=== PATIENT | female | born 1980 | race Two or more races ===

== ENCOUNTER 2018-07-19 19:41 | Emergency (ER) | payer OTHER ==
[~2018-07-19] VITALS: Ht 157.5 cm; Wt 54.4 kg
[~2018-07-19 19:41] MED LIST: DOCU-109 PO; FERR325T14 PO; OXYC1TAB7 PO
[2018-07-19 19:48] VITALS: BP 121/60
[2018-07-19 20:44] LABS: HEMOGLOBIN 10.7 g/dL (12.0-15.5)
[2018-07-19 20:48] LABS: BILIRUBIN,URINE NEGATIVE (NEG); CLARITY,URINE CLOUDY; COLOR,URINE YELLOW; NITRITE,URINE NEGATIVE (NEG); PROTEIN,URINE NEGATIVE (NEG-TRACE); UROBILINOGEN,URINE 0.2 mg/dL (0.2 mg/dL)
[2018-07-19 20:52] LABS: CREATININE 0.6 mg/dL (0.6-1.0); GFR 111.9; POTASSIUM 3.4 mmol/L (3.5-5.1)
[2018-07-19 20:55] LABS: PREG TEST PT QUAL NEGATIVE (NEG)
[2018-07-19 20:57] LABS: BACTERIA,URINE MODERATE /HPF (0-FEW); SQUAMOUS EPITHELIAL CELL,UR OCC /LPF
--- NOTE | 2018-07-19 22:08 | PHYS DOC ---
Past Medical History Past Medical History: No Pertinent History Past Surgical History: Alcohol Use: None Drug Use: None Adult General Chief Complaint Chief Complaint: FLU SYMPTOM HPI HPI Patient is a 37 year old female presents with generalized extremity. Symptoms began 30 minutes prior to ED arrival. No chest pain palpitations, shortness of breath. No abdominal pain, urinary frequency urgency. No leg pain or swelling.[] Review of Systems Review of Systems Review of systems as prescribed. All other review symptoms are negative. All other systems were reviewed and found to be within normal limits, except as documented in this note. Allergies Allergies Allergies Coded Allergies Type Severity Reaction Last Updated Verified No Known Drug Allergies 09/20/14 No Physical Exam Physical Exam Constitutional: Well developed, well nourished, no acute distress, non-toxic appearance. [] HENT: Normocephalic, atraumatic, bilateral external ears normal, oropharynx moist, no oral exudates, nose normal. [] Eyes: PERRLA, EOMI, conjunctiva normal, no discharge. [] Neck: Normal range of motion, no tenderness, supple, no stridor. [] Cardiovascular:Heart rate regular rhythm [] Lungs & Thorax: Bilateral breath sounds clear to auscultation [] Abdomen: Bowel sounds normal, soft. [] Skin: Warm, dry, no erythema, no rash. [] Back: No tenderness. [] Extremities: No tenderness, no cyanosis, no clubbing, ROM intact, no edema. [] Neurologic: Alert and oriented, normal motor function, normal sensory function, no focal deficits noted. [] Psychologic: Affect normal, judgement normal, mood normal. [] Current Patient Data Vital Signs Vital Signs Date Time Temp Pulse Resp B/P (MAP) Pulse Ox O2 Delivery O2 Flow Rate FiO2 07/19/18 19:48 98.3 85 20 121/60 (80) 97 Room Air 98.3 Lab Values Laboratory Tests Test 07/19/18 20:30 07/19/18 20:33 07/19/18 20:36 Urine Color Yellow Urine Clarity Cloudy Urine pH 6.0 Urine Specific [place] 1.015 Urine Protein Negative mg/dL (NEG-TRACE) Urine Glucose (UA) Negative mg/dL (NEG) Urine Ketones (Stick) Negative mg/dL (NEG) Urine Blood Small (NEG) Urine Nitrite Negative (NEG) Urine Bilirubin Negative (NEG) Urine Urobilinogen Dipstick 0.2 mg/dL (0.2 mg/dL) Urine Leukocyte Esterase Moderate (NEG) Urine RBC 1-2 /HPF (0-2) Urine WBC 1-4 /HPF (0-4) Urine Squamous Epithelial Cells Occ /LPF Urine Bacteria Moderate /HPF (0-FEW) Urine Mucus Mod /LPF White Blood Count 7.0 x10^3/uL (4.0-11.0) Hemoglobin 10.7 g/dL (12.0-15.5) L Hematocrit 33.0 % (36.0-47.0) L Platelet Count 180 x10^3/uL (140-400) Sodium Level 135 mmol/L (136-145) L Potassium Level 3.4 mmol/L (3.5-5.1) L Chloride Level 99 mmol/L (98-107) Carbon Dioxide Level 25 mmol/L (21-32) Anion Gap 11 (6-14) Blood Urea Nitrogen 12 mg/dL (7-20) Creatinine 0.6 mg/dL (0.6-1.0) Estimated GFR (Cockcroft-Gault) 111.9 Glucose Level 102 mg/dL (70-99) H Calcium Level 9.0 mg/dL (8.5-10.1) Serum Test, Qualitative Negative (NEG) POC Urine HCG, Qualitative Hcg negative (Negative) Laboratory Tests 07/19/18 20:33 Laboratory Tests 07/19/18 20:33 EKG EKG [] Radiology/Procedures Radiology/Procedures [] Course & Med Decision Making Course & Med Decision Making Pertinent Labs and Imaging studies reviewed. (See chart for details) [ Benign workup, physical exam unremarkable. Recommend supportive care, PCP follow-up. Return precautions reviewed.] Dragon Disclaimer Dragon Disclaimer This electronic medical record was generated, in whole or in part, using a voice recognition dictation system. Departure Departure Impression: Primary Impression: Anhedonia Disposition: 01 HOME, SELF-CARE Condition: GOOD Patient Instructions: Weakness, [id number] Additional Instructions: You were evaluated in the ED for weakness and heaviness. Lab work was performed. ALLIE HOLLAND DO Jul 19, 2018 22:08
== END 2018-07-19 21:30 | disposition home or self-care (01) ==
LOC: ER 19:41
DX: R45.84 Anhedonia (principal)
CPT/HCPCS: 36415; 80048; 81001; 81025; 84703; 85027; 87086; 99283

== ENCOUNTER 2019-04-27 02:50 | Emergency (ER) | payer BC, OTHER ==
[~2019-04-27] VITALS: Ht 157.5 cm; Wt 54.4 kg
[2019-04-27 03:28] LABS: BASO % 1 % (0-3); EOS # 0.1 x10^3/uL (0.0-0.7); EOS % 2 % (0-3); HEMATOCRIT 32.8 % (36.0-47.0); HEMOGLOBIN 10.5 g/dL (12.0-15.5); LYMPH # 1.3 x10^3/uL (1.0-4.8); LYMPH % 31 % (24-48); MEAN CORPUSCULAR HEMOGLOBIN 23 pg (25-35); MEAN CORPUSCULAR HGB CONC 32 g/dL (31-37); MEAN CORPUSCULAR VOLUME 70 fL (79-100); MONO # 0.4 x10^3/uL (0.0-1.1); MONO % 10 % (0-9); NEUT # 2.4 x10^3/uL (1.8-7.7); NEUT % 56 % (31-73); PLATELET COUNT 170 x10^3/uL (140-400); RED BLOOD COUNT 4.67 x10^6/uL (3.50-5.40); RED CELL DISTRIBUTION WIDTH 16.1 % (11.5-14.5); WHITE BLOOD COUNT 4.3 x10^3/uL (4.0-11.0)
[2019-04-27 03:36] LABS: CALCIUM 8.8 mg/dL (8.5-10.1); CREATININE 0.7 mg/dL (0.6-1.0); GFR 93.2
[2019-04-27 04:08] VITALS: BP 101/61
[2019-04-27] MEDS ORDERED: POTA20TA82 PO (04:12)
[2019-04-27] MEDS ORDERED: POTASSIUM CHLORIDE 20 MEQ TABLET.ER. PO ONE (04:15)
--- NOTE | 2019-04-27 04:43 | PHYS DOC ---
Past Medical History Past Medical History: No Pertinent History Past Surgical History: Alcohol Use: None Drug Use: None Adult General Chief Complaint Chief Complaint: WEAKNESS/GENERALIZED HPI HPI Patient is a 38 year old female who presents with generalized weakness most pronounced upper extremities versus noticed this evening. Patient denies pain. Denies recent illness. No new medications or missed medications. No nausea or vomiting. No diarrhea. No fever chills or sweats. No history of diabetes or hypo thyroidism. No other acute symptoms or complaints. Patient had a prior episode several months ago is seen in the emergency department for the same. Translation is assisted by family member. [] Review of Systems Review of Systems Review symptoms as per history of present illness. All other review symptoms are negative[] All other systems were reviewed and found to be within normal limits, except as documented in this note. Current Medications Current Medications Current Medications Medications (Trade) Dose Ordered Sig/Lukas Start Time Stop Time Status Last Admin Dose Admin Potassium Chloride (Klor-Con) 40 meq 1X ONCE 04/27/19 04:15 04/27/19 04:16 DC 04/27/19 04:16 40 MEQ Allergies Allergies Allergies Coded Allergies Type Severity Reaction Last Updated Verified No Known Drug Allergies 09/20/14 No Physical Exam Physical Exam Constitutional: Well developed, well nourished, no acute distress, non-toxic appearance. [] HENT: Normocephalic, atraumatic, bilateral external ears normal, oropharynx moist, no oral exudates, nose normal. [] Eyes: PERRLA, EOMI, conjunctiva normal, no discharge. [] Neck: Normal range of motion, no tenderness, supple, no stridor. [] Cardiovascular:Heart rate regular rhythm, no murmur [] Lungs & Thorax: Bilateral breath sounds clear to auscultation [] Abdomen: Bowel sounds normal, soft, no tenderness. [] Skin: Warm, dry. [] Back: No tenderness, no CVA tenderness. [] Extremities: No tenderness, no edema. [] Neurologic: Alert and oriented, normal motor function, normal sensory function, no focal deficits noted. [] Psychologic: Affect normal, judgement normal, mood normal. [] Current Patient Data Vital Signs Vital Signs Date Time Temp Pulse Resp B/P (MAP) Pulse Ox O2 Delivery O2 Flow Rate FiO2 04/27/19 02:50 98.0 82 16 114/70 (85) 98 Room Air 98.0 Lab Values Laboratory Tests Test 04/27/19 03:21 White Blood Count 4.3 x10^3/uL (4.0-11.0) Red Blood Count 4.67 x10^6/uL (3.50-5.40) Hemoglobin 10.5 g/dL (12.0-15.5) L Hematocrit 32.8 % (36.0-47.0) L Mean Corpuscular Volume 70 fL (79-100) L Mean Corpuscular Hemoglobin 23 pg (25-35) L Mean Corpuscular Hemoglobin Concent 32 g/dL (31-37) Red Cell Distribution Width 16.1 % (11.5-14.5) H Platelet Count 170 x10^3/uL (140-400) Neutrophils (%) (Auto) 56 % (31-73) Lymphocytes (%) (Auto) 31 % (24-48) Monocytes (%) (Auto) 10 % (0-9) H Eosinophils (%) (Auto) 2 % (0-3) Basophils (%) (Auto) 1 % (0-3) Neutrophils # (Auto) 2.4 x10^3/uL (1.8-7.7) Lymphocytes # (Auto) 1.3 x10^3/uL (1.0-4.8) Monocytes # (Auto) 0.4 x10^3/uL (0.0-1.1) Eosinophils # (Auto) 0.1 x10^3/uL (0.0-0.7) Basophils # (Auto) 0.0 x10^3/uL (0.0-0.2) Platelet Estimate Pending Sodium Level 140 mmol/L (136-145) Potassium Level 3.0 mmol/L (3.5-5.1) L Chloride Level 103 mmol/L (98-107) Carbon Dioxide Level 26 mmol/L (21-32) Anion Gap 11 (6-14) Blood Urea Nitrogen 13 mg/dL (7-20) Creatinine 0.7 mg/dL (0.6-1.0) Estimated GFR (Cockcroft-Gault) 93.2 Glucose Level 126 mg/dL (70-99) H Calcium Level 8.8 mg/dL (8.5-10.1) Thyroid Stimulating Hormone (TSH) 3.601 uIU/mL (0.358-3.74) Laboratory Tests 04/27/19 03:21 Laboratory Tests 04/27/19 03:21 EKG EKG [] Radiology/Procedures Radiology/Procedures [] Course & Med Decision Making Course & Med Decision Making Pertinent Labs and Imaging studies reviewed. (See chart for details) [Generalized weakness with hypokalemia. Potassium given in the emergency department. Prescription provided. Patient instructed to follow-up with local PCP recheck potassium level. All patient's questions answered prior to d artie. Leana Disclaimer Dragon Disclaimer This electronic medical record was generated, in whole or in part, using a voice recognition dictation system. Departure Departure Impression: Primary Impression: Hypokalemia Additional Impression: Generalized weakness Disposition: 01 HOME/RESIDENCE PRIOR TO ADM Condition: GOOD Patient Instructions: Weakness, [id number], Hypokalemia-Brief Additional Instructions: You were evaluated in the emergency department for general weakness. This is likely caused by a low serum potassium level. Please take newly prescribed medications and eat foods rich in potassium. Follow-up with your PCP. Return to the ED if new or worsening symptoms. Scripts Potassium Chloride (POTASSIUM CHLORIDE) 20 Meq Tablet.er 1 TAB PO BID for 5 Days, #10 TAB 0 Refills Prov: ALLIE HOLLAND DO 04/27/19 Problem Qualifiers ALLIE HOLLAND DO Apr 27, 2019 04:43
[2019-04-27 05:11] LABS: PLT ESTIMATE ADEQUATE (ADEQUATE)
[2019-04-27 05:12] LABS: HYPOCHROMIA MOD; MICROCYTOSIS MOD; TEAR DROP CELLS OCC
== END 2019-04-27 04:21 | disposition home or self-care (01) ==
LOC: ER 02:50
DX: R53.1 Weakness (principal); E87.6 Hypokalemia
CPT/HCPCS: 36415; 80048; 84443; 85025; 99284

== ENCOUNTER 2019-05-03 09:18 | Emergency (ER) | payer BC ==
[~2019-05-03] VITALS: Ht 157.5 cm; Wt 52.7 kg
[~2019-05-03 09:18] MED LIST changes: +POTA20TA82 PO
[2019-05-03] MEDS ORDERED: IV NORMAL SALINE 1000ML BAG 1,000 ML IV SCH (09:55)
[2019-05-03 09:56] LABS: BILIRUBIN,URINE NEGATIVE (NEG); CLARITY,URINE CLOUDY; COLOR,URINE YELLOW; NITRITE,URINE NEGATIVE (NEG); PROTEIN,URINE NEGATIVE (NEG-TRACE); UROBILINOGEN,URINE 0.2 mg/dL (0.2 mg/dL)
[2019-05-03 10:15] LABS: BASO % 0 % (0-3); EOS % 0 % (0-3); HEMATOCRIT 33.4 % (36.0-47.0); HEMOGLOBIN 10.7 g/dL (12.0-15.5); LYMPH # 1.1 x10^3/uL (1.0-4.8); LYMPH % 18 % (24-48); MEAN CORPUSCULAR HEMOGLOBIN 23 pg (25-35); MEAN CORPUSCULAR HGB CONC 32 g/dL (31-37); MEAN CORPUSCULAR VOLUME 70 fL (79-100); MONO # 0.4 x10^3/uL (0.0-1.1); MONO % 7 % (0-9); NEUT # 4.4 x10^3/uL (1.8-7.7); NEUT % 74 % (31-73); PLATELET COUNT 189 x10^3/uL (140-400); RED BLOOD COUNT 4.75 x10^6/uL (3.50-5.40); RED CELL DISTRIBUTION WIDTH 17.2 % (11.5-14.5); WHITE BLOOD COUNT 5.9 x10^3/uL (4.0-11.0)
[2019-05-03 10:17] LABS: BACTERIA,URINE FEW /HPF (0-FEW); RBC,URINE 0 /HPF (0-2); SQUAMOUS EPITHELIAL CELL,UR MANY /LPF; WBC,URINE OCC /HPF (0-4); YEAST,URINE PRESENT /HPF
[2019-05-03 10:18] LABS: CALCIUM 9.2 mg/dL (8.5-10.1); CREATININE 0.7 mg/dL (0.6-1.0); GFR 93.2
[2019-05-03 10:24] LABS: ALBUMIN 3.8 g/dL (3.4-5.0); ALBUMIN/GLOBULIN RATIO 0.9 (1.0-1.7); TOTAL BILIRUBIN 0.3 mg/dL (0.2-1.0); TOTAL PROTEIN 8.1 g/dL (6.4-8.2)
--- NOTE | 2019-05-03 10:25 | PHYS DOC ---
Past Medical History Past Medical History: No Pertinent History Past Surgical History: Alcohol Use: None Drug Use: None Adult General Chief Complaint Chief Complaint: WEAKNESS/GENERALIZED HPI HPI Patient is a 38 year old non Ugandan speaking female patient without history of medical problem who presents with complaint of weakness. History was taking via translating line. Patient complaining of generalized weakness since she woke up at 0730 today without focal neuro deficit, headache, blurred vision, nausea and vomiting, chest pain, nausea and vomiting, abdominal pain, diarrhea and constipation, fever and chills, URI symptoms, history of the same problem. Review of Systems Review of Systems Constitutional: Denies fever or chills [] Eyes: Denies change in visual acuity, redness, or eye pain [] HENT: Denies nasal congestion or sore throat [] Respiratory: Denies cough or shortness of breath [] Cardiovascular: No additional information not addressed in HPI [] GI: Denies abdominal pain, nausea, vomiting, bloody stools or diarrhea [] : Denies dysuria or hematuria [] Musculoskeletal: Denies back pain or joint pain [] Integument: Denies rash or skin lesions [] Neurologic: Denies headache, focal weakness or sensory changes [] Endocrine: Denies polyuria or polydipsia [] All other systems were reviewed and found to be within normal limits, except as documented in this note. Current Medications Current Medications Current Medications Medications (Trade) Dose Ordered Sig/Lukas Start Time Stop Time Status Last Admin Dose Admin Sodium Chloride 1,000 ml @ 1,000 mls/hr Q1H 05/03/19 09:55 05/03/19 10:54 DC 05/03/19 10:03 1,000 MLS/HR Allergies Allergies Allergies Coded Allergies Type Severity Reaction Last Updated Verified No Known Drug Allergies 09/20/14 No Physical Exam Physical Exam Constitutional: Well developed, well nourished, no acute distress, non-toxic appearance. [] HENT: Normocephalic, atraumatic, bilateral external ears normal, oropharynx moist, no oral exudates, nose normal. [] Eyes: PERRLA, EOMI, conjunctiva normal, no discharge. [] Neck: Normal range of motion, no tenderness, supple, no stridor. [] Cardiovascular:Heart rate regular rhythm, no murmur [] Lungs & Thorax: Bilateral breath sounds clear to auscultation [] Abdomen: Bowel sounds normal, soft, no tenderness, no masses, no pulsatile masses. [] Skin: Warm, dry, no erythema, no rash. [] Back: No tenderness, no CVA tenderness. [] Extremities: No tenderness, no cyanosis, no clubbing, ROM intact, no edema. [] Neurologic: Alert and oriented X 3, normal motor function, normal sensory function, no focal deficits noted. [] Psychologic: Affect normal, judgement normal, mood normal. [] Current Patient Data Vital Signs Vital Signs Date Time Temp Pulse Resp B/P (MAP) Pulse Ox O2 Delivery O2 Flow Rate FiO2 05/03/19 11:36 66 19 99 05/03/19 09:27 98.5 112/57 (75) Room Air 98.5 Lab Values Laboratory Tests Test 05/03/19 09:35 05/03/19 09:46 05/03/19 09:55 Urine Collection Type Void Urine Color Yellow Urine Clarity Cloudy Urine pH 6.0 Urine Specific [place] 1.010 Urine Protein Negative mg/dL (NEG-TRACE) Urine Glucose (UA) Negative mg/dL (NEG) Urine Ketones (Stick) Negative mg/dL (NEG) Urine Blood Trace (NEG) Urine Nitrite Negative (NEG) Urine Bilirubin Negative (NEG) Urine Urobilinogen Dipstick 0.2 mg/dL (0.2 mg/dL) Urine Leukocyte Esterase Moderate (NEG) Urine RBC 0 /HPF (0-2) Urine WBC Occ /HPF (0-4) Urine Squamous Epithelial Cells Many /LPF Urine Bacteria Few /HPF (0-FEW) Urine Yeast Present /HPF POC Urine HCG, Qualitative Hcg negative (Negative) White Blood Count 5.9 x10^3/uL (4.0-11.0) Red Blood Count 4.75 x10^6/uL (3.50-5.40) Hemoglobin 10.7 g/dL (12.0-15.5) L Hematocrit 33.4 % (36.0-47.0) L Mean Corpuscular Volume 70 fL (79-100) L Mean Corpuscular Hemoglobin 23 pg (25-35) L Mean Corpuscular Hemoglobin Concent 32 g/dL (31-37) Red Cell Distribution Width 17.2 % (11.5-14.5) H Platelet Count 189 x10^3/uL (140-400) Neutrophils (%) (Auto) 74 % (31-73) H Lymphocytes (%) (Auto) 18 % (24-48) L Monocytes (%) (Auto) 7 % (0-9) Eosinophils (%) (Auto) 0 % (0-3) Basophils (%) (Auto) 0 % (0-3) Neutrophils # (Auto) 4.4 x10^3/uL (1.8-7.7) Lymphocytes # (Auto) 1.1 x10^3/uL (1.0-4.8) Monocytes # (Auto) 0.4 x10^3/uL (0.0-1.1) Eosinophils # (Auto) 0.0 x10^3/uL (0.0-0.7) Basophils # (Auto) 0.0 x10^3/uL (0.0-0.2) Platelet Estimate Pending Sodium Level 140 mmol/L (136-145) Potassium Level 4.0 mmol/L (3.5-5.1) Chloride Level 104 mmol/L (98-107) Carbon Dioxide Level 27 mmol/L (21-32) Anion Gap 9 (6-14) Blood Urea Nitrogen 13 mg/dL (7-20) Creatinine 0.7 mg/dL (0.6-1.0) Estimated GFR (Cockcroft-Gault) 93.2 BUN/Creatinine Ratio 19 (6-20) Glucose Level 89 mg/dL (70-99) Calcium Level 9.2 mg/dL (8.5-10.1) Total Bilirubin 0.3 mg/dL (0.2-1.0) Aspartate Amino Transferase (AST) 16 U/L (15-37) Alanine Aminotransferase (ALT) 12 U/L (14-59) L Alkaline Phosphatase 34 U/L (46-116) L Total Protein 8.1 g/dL (6.4-8.2) Albumin 3.8 g/dL (3.4-5.0) Albumin/Globulin Ratio 0.9 (1.0-1.7) L Laboratory Tests 05/03/19 09:55 Laboratory Tests 05/03/19 09:55 EKG EKG [] Radiology/Procedures Radiology/Procedures [] Course & Med Decision Making Course & Med Decision Making Pertinent Labs reviewed. (See chart for details) Evaluation of patient in ER showed 38-year-old female patient with complaining of weakness since this morning without other complaint. Patient had unremarkable physical exam and labs except for hemoglobin of 10 and yeast in urine. Patient with IV fluid and felt better. Patient was advised to follow-up with her primary care physician regarding evaluation of anemia and increase fluid intake. I've spoken with the patient and/or caregivers. I've explained the patient's condition, diagnosis and treatment plan based on information available to me at this time. I've answered the patient's and/or caregivers questions and addressed any concerns. The patient and/or caregivers have a good understanding the patient's diagnosis, condition and treatment plan as can be expected at this point. Vital signs have been stabilized. The patient's condition is stable for discharge from the emergency department. The patient will pursue further outpatient evaluation with her primary care provider or other designated consulting physician as outlined in the discharge instructions. Patient and/or caregivers are agreeable to this plan of care and follow-up instructions have been explained in detail. The patient and/or caregivers have received these instructions in written format and expressed understanding of these discharge instructions. The patient and her caregivers are aware that if any significant change in condition or worsening of symptoms should prompt him to immediately return to this of the closest emergency department. If an emergent department is not readily available I would encourage him to call 911. Leana Disclaimer Terryon Disclaimer This electronic medical record was generated, in whole or in part, using a voice recognition dictation system. Departure Departure Impression: Primary Impression: Monilial cystitis Additional Impressions: Anemia Weakness Disposition: 01 HOME, SELF-CARE (1113) Condition: IMPROVED Referrals: GRACIEAL GARCIA CNM (PCP) Patient Instructions: Anemia, Nonspecific-Brief, Vaginitis, Monilial, Weakness Additional Instructions: Drink plenty of liquids Follow-up with your primary care physician in 3-5 days Return to ER if not getting better Take [id number] iron pills twice a day Scripts Fluconazole (DIFLUCAN) 150 Mg Tablet 1 TAB PO ONCE, #1 TAB 0 Refills Prov: DARIA EDGE MD 05/03/19 Problem Qualifiers Additional Impressions: Anemia Anemia type: unspecified type Qualified Codes: D64.9 - Anemia, unspecified DARIA EDGE MD May 03, 2019 10:25
[2019-05-03] MEDS ORDERED: FLUC150T PO (11:19)
[2019-05-03 11:36] VITALS: BP 102/56
[2019-05-03 12:12] LABS: PLT ESTIMATE ADEQUATE (ADEQUATE)
[2019-05-03 12:13] LABS: ANISOCYTOSIS PRESENT; HYPOCHROMIA PRESENT; MICROCYTOSIS PRESENT
[2019-05-03] MEDS ORDERED: NAPR-514 PO (23:21)
[2019-05-03] MEDS ORDERED: PRED50TA PO (23:21)
== END 2019-05-03 11:59 | disposition home or self-care (01) ==
LOC: ER 09:18
DX: B37.41 Candidal cystitis and urethritis (principal); D64.9 Anemia, unspecified; R53.1 Weakness; R11.2 Nausea with vomiting, unspecified; R19.7 Diarrhea, unspecified; R07.89 Other chest pain
CPT/HCPCS: 36415; 80053; 81001; 81025; 85025; 87086; 96360; 96361; 99285; J7030

== ENCOUNTER 2019-05-03 20:31 | Emergency (ER) | payer BC ==
[~2019-05-03] VITALS: Ht 154.9 cm; Wt 52.6 kg
[2019-05-03 20:31] VITALS: BP 110/57
[~2019-05-03 20:31] MED LIST changes: +FLUC150T PO
[2019-05-03 21:35] LABS: INFLUENZA A PATIENT NEGATIVE (NEGATIVE); INFLUENZA B PATIENT NEGATIVE (NEGATIVE)
[2019-05-03 21:54] LABS: BILIRUBIN,URINE NEGATIVE (NEG); COLOR,URINE YELLOW; NITRITE,URINE NEGATIVE (NEG); PH,URINE 6.5; PROTEIN,URINE NEGATIVE (NEG-TRACE); UROBILINOGEN,URINE 0.2 mg/dL (0.2 mg/dL)
[2019-05-03 21:58] LABS: CLARITY,URINE CLEAR
[2019-05-03 22:04] LABS: BACTERIA,URINE MOD /HPF (0-FEW); RBC,URINE RARE /HPF (0-2); SQUAMOUS EPITHELIAL CELL,UR MANY /LPF; YEAST,URINE PRESENT /HPF
[2019-05-03] MEDS ORDERED: ACETAMINOPHEN 500 MG TABLET PO ONE (22:30)
[2019-05-03] MEDS ORDERED: cefTRIAXone IM 1 GM VIAL IM ONE (22:30)
[2019-05-03] MEDS ORDERED: LIDOCAINE 1% PF 2 ML VIAL. INJ ONE (22:30)
[2019-05-03] MEDS ORDERED: FLUCONAZOLE 100 MG TABLET. PO ONE (22:30)
[2019-05-03] MEDS ORDERED: PRED50TA PO (23:21)
[2019-05-03] MEDS ORDERED: NAPR-514 PO (23:21)
--- NOTE | 2019-05-03 23:22 | PHYS DOC ---
Past Medical History Past Medical History: No Pertinent History (DENITA BARON APRN) Past Surgical History: (DENITA BARON APRN) Alcohol Use: None Drug Use: None (DENITA BARON APRN) Attending Signature I have participated in the care of this patient and I have reviewed and agree with all pertinent clinical information above including history, exam, and recommendations. (SCOTTIE JACOBO MD) Adult General Chief Complaint Chief Complaint: GENERALIZED BODY ACHES HPI HPI Patient is a 38 year old [place] speaking female who presents to the ED today complaining of body aches and feeling tired, symptoms began today, patient was seen earlier in the ED had lab work done and was discharged with fluconazole for yeast infection in her urine. She returns today, she did not fill her prescription and she does not feel any better. Denies any abdominal pain, nausea, vomiting, headache, cough or congestion. Family interpreting for [place] (DENITA BARON APRN) Review of Systems Review of Systems Constitutional: Reports generalized body aches and not feeling well. Denies fever or chills [] Eyes: Denies change in visual acuity, redness, or eye pain [] HENT: Denies nasal congestion or sore throat [] Respiratory: Denies cough or shortness of breath [] Cardiovascular: No additional information not addressed in HPI [] GI: Denies abdominal pain, nausea, vomiting, bloody stools or diarrhea [] : Denies dysuria or hematuria [] Musculoskeletal: Denies back pain or joint pain [] Integument: Denies rash or skin lesions [] Neurologic: Denies headache, focal weakness or sensory changes [] All other systems were reviewed and found to be within normal limits, except as documented in this note. (DENITA BARON APRN) Current Medications Current Medications Current Medications Medications (Trade) Dose Ordered Sig/Lukas Start Time Stop Time Status Last Admin Dose Admin Acetaminophen (Tylenol) 1,000 mg 1X ONCE 05/03/19 22:30 05/03/19 22:31 DC 05/03/19 23:09 1,000 MG Ceftriaxone Sodium (Rocephin Im) 1 gm 1X ONCE 05/03/19 22:30 05/03/19 22:31 DC 05/03/19 23:08 1 GM Fluconazole (Diflucan) 150 mg 1X ONCE 05/03/19 22:30 05/03/19 22:31 DC 05/03/19 23:09 150 MG Lidocaine HCl (Xylocaine-Mpf 1% 2ml Vial) 2 ml 1X ONCE 05/03/19 22:30 05/03/19 22:31 DC 05/03/19 23:09 2 ML (SCOTTIE JACOBO MD) Allergies Allergies Allergies Coded Allergies Type Severity Reaction Last Updated Verified No Known Drug Allergies 09/20/14 No (SCOTTIE JACOBO MD) Physical Exam Physical Exam Constitutional: Well developed, well nourished, no acute distress, non-toxic appearance. [] HENT: Normocephalic, atraumatic, bilateral external ears normal, oropharynx moist, no oral exudates, nose normal. [] Eyes: PERRLA, EOMI, conjunctiva normal, no discharge. [] Neck: Normal range of motion, no tenderness, supple, no stridor. [] Cardiovascular:Heart rate regular rhythm, no murmur [] Lungs & Thorax: Bilateral breath sounds clear to auscultation [] Abdomen: Bowel sounds normal, soft, no tenderness, no masses, no pulsatile masses. [] Skin: Warm, dry, no erythema, no rash. [] Back: No tenderness, no CVA tenderness. [] Extremities: No tenderness, no cyanosis, no clubbing, ROM intact, no edema. [] Neurologic: Alert and oriented X 3, normal motor function, normal sensory function, no focal deficits noted. [] Psychologic: Affect normal, judgement normal, mood normal. [] (DENITA BARON APRN) Current Patient Data Vital Signs Vital Signs Date Time Temp Pulse Resp B/P (MAP) Pulse Ox O2 Delivery O2 Flow Rate FiO2 05/03/19 20:31 98.2 81 19 110/57 (74) 97 Room Air 98.2 (SCOTTIE JACOBO MD) Lab Values Laboratory Tests Test 05/03/19 21:00 05/03/19 21:45 Influenza Type A Antigen Negative (NEGATIVE) Influenza Type B Antigen Negative (NEGATIVE) Urine Collection Type Unknown Urine Color Yellow Urine Clarity Clear Urine pH 6.5 Urine Specific [place] 1.010 Urine Protein Negative mg/dL (NEG-TRACE) Urine Glucose (UA) Negative mg/dL (NEG) Urine Ketones (Stick) Negative mg/dL (NEG) Urine Blood Negative (NEG) Urine Nitrite Negative (NEG) Urine Bilirubin Negative (NEG) Urine Urobilinogen Dipstick 0.2 mg/dL (0.2 mg/dL) Urine Leukocyte Esterase Small (NEG) Urine RBC Rare /HPF (0-2) Urine WBC 5-10 /HPF (0-4) Urine Squamous Epithelial Cells Many /LPF Urine Bacteria Mod /HPF (0-FEW) Urine Yeast Present /HPF (SCOTTIE JACOBO MD) EKG EKG [] (DENITA BARON APRN) Radiology/Procedures Radiology/Procedures [] (DENITA BARON APRN) Course & Med Decision Making Course & Med Decision Making Pertinent Labs and Imaging studies reviewed. (See chart for details) This is a well-appearing 38-year-old female patient presenting to the ED today with complaints of body aches and not feeling well, symptoms began this morning. Patient was seen and in the ED, had lab work done and was diagnosed with yeast in her urine and given prescription for fluconazole which she did not fill. She returns not feeling better. Chest x-ray is negative for any acute findings, negative influenza A or B, urine noted for small amount of leukocytes bite appears contaminated. Urine also noted for yeast. Considering this is her second visit in the ED, I gave her a shot of Rocephin 1 g, fluconazole for her yeast infection and discharged her to home. Instructed to follow-up with her own PCP next week. (DENITA BARON APRN) Dragon Disclaimer Dragon Disclaimer This electronic medical record was generated, in whole or in part, using a voice recognition dictation system. (DENITA BARON APRN) Departure Departure Impression: Primary Impression: UTI (urinary tract infection) Additional Impression: Generalized body aches Disposition: HOME, SELF-CARE Condition: STABLE Referrals: GRACIELA GARCIA CNM (PCP) Follow-up in 1-2 weeks Patient Instructions: Fatigue Additional Instructions: You were evaluated in the emergency room for body aches, take the prescribed medication as needed for pain. Rest, push fluids. Follow-up with your doctor next week. Scripts Prednisone (PREDNISONE) 50 Mg Tablet 1 TAB PO DAILY, #5 TAB Prov: DENITA BARON APRN 05/03/19 Naproxen (NAPROXEN) 500 Mg Tablet 1 TAB PO BID for pain, #20 TAB 0 Refills Prov: DENITA BARON APRN 05/03/19 Problem Qualifiers Primary Impression: UTI (urinary tract infection) Urinary tract infection type: site unspecified Hematuria presence: without hematuria Qualified Codes: N39.0 - Urinary tract infection, site not specified DENITA BARON APRN May 03, 2019 23:22 SCOTTIE JACOBO MD May 04, 2019 04:30
--- NOTE | 2019-05-03 23:33 | RAD ---
CHEST PA LATERAL INDICATION: Body aches. COMPARISON STUDY: 09/21/2014. FINDINGS: Lungs: Normal lung volume. No pulmonary mass or consolidation. The tracheobronchial tree and hilar structures are normal. Pleura: No pleural effusion or pneumothorax. Heart and Mediastinum: The cardiomediastinal silhouette is normal. The great vessels of the thorax are normal. Bones and Soft Tissues: The bones and soft tissues are within normal limits. IMPRESSION: No acute cardiopulmonary process. Electronically signed by: Cristino Sears MD (05/03/2019 11:30 PM) [id number]
== END 2019-05-03 23:30 | disposition home or self-care (01) ==
LOC: ER 20:31
DX: N39.0 Urinary tract infection, site not specified (principal); M79.10 Myalgia, unspecified site; R53.83 Other fatigue
CPT/HCPCS: 71046; 81001; 87804; 96372; 99285; J0696